=== PATIENT | female | born 1970 | race Caucasian/White ===

== ENCOUNTER → 2021-05-06 | Outpatient (CLI) | payer BC ==
--- NOTE | 2021-05-06 12:38 | Diagnostic Imaging Report ---
INDICATION: Routine screening. COMPARISON: No prior mammograms are available for comparison. TECHNIQUE: 2D and 3D bilateral screening mammography was performed with CAD. FINDINGS: Scattered fibroglandular densities are identified bilaterally. No dominant mass or malignant-appearing microcalcifications are seen. The axillae are unremarkable. IMPRESSION: No mammographic features suspicious for malignancy are identified. ACR BI-RADS Category 1: Negative. Result letter will be mailed to the patient. Note: At least 10% of breast cancer is not imaged by mammography. Dictated by: Dictated on workstation # [id number]
== END ==
LOC: RAD 09:45
PROVIDERS: ATTEND Nurse Practitioner
DX: Z12.31 Encounter for screening mammogram for malignant neoplasm of breast (principal)
CPT/HCPCS: 77063; 77067

== ENCOUNTER → 2021-11-09 | Outpatient (RCR) | payer BC ==
[~2021-11-09] VITALS: Ht 154.9 cm; Wt 95.7 kg
[~2021-11-09] MED LIST: DAPA1TAB5 PO; DULA1.5P2 SQ; HYDR12.56 PO; INSU100I23 SQ; INSU100V37 SQ; ROSU20TA32 PO
== END | disposition home or self-care (01) ==
LOC: PREOP 05:37 → EDSTATUS 10:45 → PREOP 15:02
PROVIDERS: ATTEND Surgery
DX: Z01.818 Encounter for other preprocedural examination (principal)

== ENCOUNTER 2021-11-16 07:45 | Day surgery (SDC) | payer BC ==
[~2021-11-16] VITALS: Ht 154.9 cm; Wt 95.7 kg
[2021-11-16] MEDS ORDERED: LACTATED RINGERS 1,000 ML IV ONE (07:48)
[2021-11-16] MEDS ORDERED: LACTATED RINGERS 1,000 ML IV STA (07:50)
[2021-11-16 07:55] VITALS: BP 126/70
[2021-11-16] MEDS ORDERED: HURRICAINE EXT TUBE (BENZOCAINE) XX PRN (08:00)
--- NOTE | 2021-11-16 08:28 | Progress Note-Pre Operative ---
Pre-Operative Progress Note H&P Reviewed The H&P was reviewed, patient examined and no changes noted. Time Seen by Provider: 08:23 Date H&P Reviewed: Nov 16, 2021 Time H&P Reviewed: 08:23 Pre-Operative Diagnosis: + MELISSA Garcia ERIC B DO Nov 16, 2021 08:28
[2021-11-16] MEDS ORDERED: PROPOFOL INJECTION 50 ML IV ONE (09:08)
[2021-11-16] MEDS ORDERED: proPOfol 200 MG/20 ML (DIPRIVAN) VIAL IV ONE (09:48)
[2021-11-16 10:00] VITALS: BP 100/62
--- NOTE | 2021-11-16 10:04 | Progress Note-Post Operative ---
Post-Operative Progess Note Surgeon (s)/Utility System Operator (s) Surgeon SHARMILA MONTERO DO Utility System Operator: AZEEM Lucas Pre-Operative Diagnosis + Cologuard, GERD Post-Operative Diagnosis Gastritis Hiatal hernia Esophagitis Polyps int hemorrhoids Procedure & Operative Findings Date of Procedure 11/16/21 Procedure Performed/Findings EGD with bx Colon with snare Colon with cold biopsy PROCEDURE NOTE: After informed consent was obtained, the patient was brought to the endoscopy suite, placed in bed in left lateral decubitus position. She was administered IV sedation by the UPHOLSTERY SEWER who then monitored vitals the entire time, heart rate, blood pressure and pulse ox and the scope was inserted down the mouth through the esophagus into the stomach. On the way down, noted some mild esophagitis, took a picture, pushed into the stomach, pushed past the antrum into the duodenum. Duodenum looked good. Pulled back and did a biopsy of antrum, then retroflexed the scope, saw a small 1cm hiatal hernia, took a picture of this. Then did a biopsy of the body of the stomach, finally pulled the scope into the GE junction and took another picture of the esophagitis and then did a biopsy of the GE junction. Pushed the scope back into the stomach, suctioned all the air out of the stomach. At this point pulled the scope up the esophagus and out the mouth. Switched camera, switched gloves, went down below and started the colonoscopy. Pushed in and saw a flat polyp in the descending colon; elected to remove it with cold biopsy. Able to get all of it in 2 bites. Next pushed all the way into about 140 cm to get all the way to cecum. Took a picture of the appendiceal orifice, noted the ileocecal valve and then slowly withdrew the scope, insufflating to look circumferentially at the law starting in the cecum, up the ascending colon to the hepatic flexure, then down the transverse colon, splenic flexure, into the descending colon. In the sigmoid colon saw a very large polyp; elected to do snare poly pectomy and able to remove it in 3-4 pieces. Two of the pieces were so large I had to suction them up to the scope and remove the scope completely and then reinsert the scope. Finally pulled down into the rectum and retroflexed in the rectal vault, saw s ome minimal internal hemorrhoids and took a picture of this. The patient tolerated the procedure and she recovered in the endoscopy suite. Anesthesia Type IV sedation by UPHOLSTERY SEWER Estimated Blood Loss Estimated blood loss (mL): scant Specimens/Packing Specimens Removed antral bx body of stomach bx GE jxn bx x 2 Desc colon polyp sigmoid colon polyp SHARMILA MONTERO DO Nov 16, 2021 10:04
[2021-11-16 10:05] VITALS: BP 112/68
[2021-11-16 10:35] VITALS: BP 118/68
[2021-11-16 10:39] VITALS: BP 118/68
--- NOTE | 2021-11-16 10:41 | Endoscopy Discharge Instruct ---
Endo Procedure/Findings Findings 1.: Gastritis, Other Findings (esophagitis) 2.: Hiatal Hernia 3.: Polyp 4.: Internal Hemorrhoids Discharge Instructions - Activity: You might feel a little sleepy until tomorrow. This is due to the medicine you received to relax you. Until tomorrow, you should: NOT drive a car, operate machinery or power tools. NOT drink any alcoholic beverages. NOT make any important decisions or sign importortant papers. Do not return to work until tomorrow, unless otherwise instructed. Resume previous activities tomorrow. Diet: Start by taking liquids. If you tolerate liquids, advance to solid food. 1.: EGD in 1 year 2.: Colonoscopy in 1 year Notify Physician - If you experience excessive bleeding, unusual abdominal pain, fever, or chest pain, contact your doctor immediately. SHARMILA MONTERO DO Nov 16, 2021 10:41
--- NOTE | 2021-11-16 12:30 | Anesthesia-General Post-Op ---
MAC Patient Condition Mental Status/LOC: Same as Preop Cardiovascular: Satisfactory Nausea/Vomiting: Absent Respiratory: Satisfactory Pain: Controlled Complications: Absent Post Op Complications Complications None Follow Up Care/Instructions Patient Instructions None needed. Anesthesiology Discharge Order Discharge Order Patient is doing well, no complaints, stable vital signs, no apparent adverse anesthesia problems. No complications reported per nursing. KIRTI HANKS CRNA Nov 16, 2021 12:30
== END 2021-11-16 10:55 | disposition home or self-care (01) ==
LOC: ENDO 07:45
PROVIDERS: ATTEND Surgery
DX: C18.7 Malignant neoplasm of sigmoid colon (principal); D12.4 Benign neoplasm of descending colon; K29.70 Gastritis, unspecified, without bleeding; K44.9 Diaphragmatic hernia without obstruction or gangrene; K21.00 Gastro-esophageal reflux disease with esophagitis, without bleeding; K64.8 Other hemorrhoids; E11.9 Type 2 diabetes mellitus without complications; E66.01 Morbid (severe) obesity due to excess calories; Z68.39 Body mass index [BMI] 39.0-39.9, adult; F17.290 Nicotine dependence, other tobacco product, uncomplicated; Z79.4 Long term (current) use of insulin; Z79.84 Long term (current) use of oral hypoglycemic drugs

== ENCOUNTER 2021-11-25 05:32 | Outpatient (CLI) | payer BC | END 2021-11-26 15:43 | disposition home or self-care (01) | LOC: PREOP 05:32 | PROVIDERS: ATTEND Surgery | DX: Z01.818 Encounter for other preprocedural examination (principal) ==

== ENCOUNTER 2021-12-04 13:51 | Outpatient (RCR) | payer BC ==
[2021-12-04 15:37] LABS: BASOPHILS % (AUTO) 0 % (0-10); EOSINOPHILS # (AUTO) 0.2 10^3/uL (0.0-0.3); EOSINOPHILS % (AUTO) 2 % (0-10); HEMATOCRIT 46 % (35-52); HEMOGLOBIN 15.1 g/dL (11.5-16.0); LYMPHOCYTES # (AUTO) 3.5 X 10^3 (1.0-4.0); LYMPHOCYTES % (AUTO) 33 % (12-44); MEAN CORPUSCULAR HEMOGLOBIN 29 pg (25-34); MEAN CORPUSCULAR HGB CONC 33 g/dL (32-36); MEAN CORPUSCULAR VOLUME 89 fL (80-99); MEAN PLATELET VOLUME 11.3 fL (9.0-12.2); MONOCYTES # (AUTO) 0.6 X 10^3 (0.0-1.0); MONOCYTES % (AUTO) 6 % (0-12); NEUTROPHILS # (AUTO) 6.1 X 10^3 (1.8-7.8); NEUTROPHILS % (AUTO) 58 % (42-75); PLATELET COUNT 180 10^3/uL (130-400); WHITE BLOOD COUNT 10.4 10^3/uL (4.3-11.0)
[2021-12-04 15:53] LABS: ALBUMIN 4.4 GM/DL (3.2-4.5); BILIRUBIN,TOTAL 0.3 MG/DL (0.1-1.0); CALCIUM 9.7 MG/DL (8.5-10.1); CREATININE SERUM 0.8 MG/DL (0.60-1.30); POTASSIUM 3.5 MMOL/L (3.6-5.0); TOTAL PROTEIN 7.2 GM/DL (6.4-8.2)
== END 2021-12-07 | disposition home or self-care (01) ==
LOC: ONC 13:51
PROVIDERS: ATTEND Internal Medicine Hematology & Oncology
DX: C18.9 Malignant neoplasm of colon, unspecified (principal)
CPT/HCPCS: 80053; 82378; 85025; G0463; 36415; 99214

== ENCOUNTER → 2021-12-11 | Outpatient (CLI) | payer BC ==
[~2021-12-11] MED LIST changes: +HOLD METFORMIN - RECEIVED CONTRAST 20 ML VIAL IV SCH; +IOHEXOL 350 MG/ML 100 ML (OMNIPAQUE 350) VIAL IV ONE; +NS 100 ML (IVPB) BAG IV ONE
--- NOTE | 2021-12-11 10:30 | Diagnostic Imaging Report ---
EXAMINATION: CT chest with intravenous contrast, CT abdomen and pelvis without and with intravenous contrast. TECHNIQUE: Pre and post intravenous contrast axial imaging of the abdomen and pelvis and post contrast axial imaging of the chest were performed. All CT scans use one or more of the following dose optimizing techniques: automated exposure control, MA and/or KvP adjustment based on patient size and exam type or iterative reconstruction. HISTORY: Colon cancer. COMPARISON: None available. FINDINGS: There is no edema or pneumonia. No pleural effusion. No pneumothorax. There is a 4 mm fissural-based nodule along the undersurface of the right minor fissure. There is no axillary or supraclavicular lymphadenopathy. There is no mediastinal lymphadenopathy. Heart size is normal. There are mild coronary artery calcifications. No pericardial effusion. Aorta is normal in caliber. The liver is normal without focal lesion. There is no biliary ductal dilation. Gallbladder is surgically absent. Pancreas is normal. Spleen is normal. Adrenal glands are normal. The kidneys are normal. There is no hydronephrosis. Urinary bladder is normal. Bowel is normal in caliber without obstruction or inflammation. No free fluid or air. No abdominal or pelvic lymphadenopathy. Aorta is normal in caliber without aneurysm. There are no suspicious osseous lesions. IMPRESSION: 1. Indeterminate 4 mm fissural-based nodule in the right minor fissure is favored to represent a lymph node. Short-term follow-up recommended. 2. No metastatic disease in the abdomen or pelvis. Dictated by: Dictated on workstation # [id number]
== END ==
LOC: RAD 10:15
PROVIDERS: ATTEND Internal Medicine Hematology & Oncology
DX: C18.9 Malignant neoplasm of colon, unspecified (principal); R91.1 Solitary pulmonary nodule
CPT/HCPCS: 71260; 74178

== ENCOUNTER 2021-12-17 12:19 | Outpatient (RCR) | payer BC ==
[~2021-12-17 12:19] MED LIST changes: -HOLD METFORMIN - RECEIVED CONTRAST 20 ML VIAL IV SCH; -IOHEXOL 350 MG/ML 100 ML (OMNIPAQUE 350) VIAL IV ONE; -NS 100 ML (IVPB) BAG IV ONE
[2021-12-18] MEDS ORDERED: PANT40TA2 PO (15:29)
[2021-12-25] MEDS ORDERED: ACHD5005 PO (11:11)
== END 2022-01-07 | disposition home or self-care (01) ==
LOC: ONC 12:19
PROVIDERS: ATTEND Internal Medicine Hematology & Oncology
DX: C18.7 Malignant neoplasm of sigmoid colon (principal); E11.9 Type 2 diabetes mellitus without complications; K21.9 Gastro-esophageal reflux disease without esophagitis
CPT/HCPCS: 99213

== ENCOUNTER 2021-12-18 05:39 | Outpatient (CLI) | payer BC ==
[~2021-12-18] VITALS: Ht 154.4 cm; Wt 91.4 kg
[2021-12-18] MEDS ORDERED: PANT40TA2 PO (15:29)
== END 2021-12-18 15:48 ==
LOC: PREOP 05:39
PROVIDERS: ATTEND Surgery
DX: Z01.818 Encounter for other preprocedural examination (principal)

== ENCOUNTER 2021-12-23 06:40 | Inpatient (IN) | payer BC ==
[2021-12-23] VITALS (12 sets, daily range): BP systolic 95–124; BP diastolic 41–69
[~2021-12-23] VITALS: Ht 154.9 cm; Wt 95.4 kg
[~2021-12-23 06:40] MED LIST changes: +PANT40TA2 PO
[2021-12-23] MEDS ORDERED: fentaNYL INJ 100 MCG/2 ML AMP ONE (07:37)
[2021-12-23] MEDS ORDERED: MIDAZOLAM 2 MG/2 ML (VERSED) VIAL ONE (07:39)
[2021-12-23] MEDS ORDERED: ceFAZolin 2 GM IV Premixed 50 ML IV ONE (07:45)
[2021-12-23] MEDS ORDERED: LIDOCAINE/EPI 2% 1:100,00 (XYLOCAINE) 20 ML VIAL ONE (07:48)
[2021-12-23] MEDS: LACTATED RINGERS 1,000 ML IV PRN ×2 (07:59→09:10)
--- NOTE | 2021-12-23 08:25 | Progress Note-Pre Operative ---
Pre-Operative Progress Note H&P Reviewed The H&P was reviewed, patient examined and no changes noted. Time Seen by Provider: 08:07 Date H&P Reviewed: Dec 23, 2021 Time H&P Reviewed: 08:07 Pre-Operative Diagnosis: Sigmoid Colon resection SHARMILA MONTERO DO Dec 23, 2021 08:25
[2021-12-23] MEDS ORDERED: ONDANSETRON 4 MG/2 ML (SDV) Z0FRAN ONE (10:01)
[2021-12-23] MEDS ORDERED: proPOfol 200 MG/20 ML (DIPRIVAN) VIAL IV ONE (10:01)
[2021-12-23] MEDS ORDERED: ROCURONIUM 10 MG/ML 5 ML SYRINGE IV ONE ×2 (10:01→10:15)
[2021-12-23] MEDS ORDERED: LIDOCAINE PF 2% 5 ML (XYLOCAINE) VIAL ONE (10:01)
[2021-12-23] MEDS ORDERED: PHENYLEPHRINE 100 MCG/ML 10 ML (ANESTHESIA) SYR ONE ×2 (10:01→11:05)
[2021-12-23] MEDS ORDERED: BUPIVACAINE 0.5% 30 ML (SENSORCAINE) VIAL ONE (10:24)
[2021-12-23] MEDS ORDERED: BUPIVACAINE 0.25% 30 ML (SENSORCAINE) VIAL ONE (10:24)
--- NOTE | 2021-12-23 10:28 | Progress Note-Post Operative ---
Post-Operative Progess Note Surgeon (s)/Castings Trimmer (s) Surgeon SHARMILA MONTERO DO Castings Trimmer: Natalio Pre-Operative Diagnosis Sigmoid Colon Cancer Post-Operative Diagnosis Sigmoid Colon CA Procedure & Operative Findings Date of Procedure 12/23/21 Procedure Performed/Findings Lap hand assisted Low anterior resection with primary coloproctotomy anastomosis Anesthesia Type GET Estimated Blood Loss Estimated blood loss (mL): less than 40ml Specimens/Packing Specimens Removed sigmoid colon SHARMILA MONTERO DO Dec 23, 2021 10:28
[2021-12-23] MEDS ORDERED: ONDANSETRON 4 MG/2 ML (SDV) Z0FRAN IVP PRN ×2 (10:30→11:00)
[2021-12-23] MEDS ORDERED: SUGAMMADEX 500 MG/5 ML VIAL (BRIDION) IV ONE (10:37)
[2021-12-23] MEDS ORDERED: fentaNYL INJ 100 MCG/2 ML AMP IVP ONE (11:00)
[2021-12-23] MEDS ORDERED: PROMETHAZINE INJ 25 MG/ML (PHENERGAN) AMP IVP ONE (11:00)
[2021-12-23] MEDS ORDERED: HYDROmorphone 2 MG/ML VIAL (DILAUDID) IV ONE (11:00)
[2021-12-23] MEDS ORDERED: morphine INJ 10 MG/ML 1ML (SYR OR VIAL) IVP ONE (11:00)
[2021-12-23] MEDS ORDERED: KETOROLAC 30 MG/ML VIAL ONE (11:07)
[2021-12-23] MEDS ORDERED: HYDROmorphone 2 MG/ML VIAL (DILAUDID) ONE (11:07)
[2021-12-23] MEDS: KETOROLAC 30 MG/ML VIAL IVP SCH ×3 (11:10→21:37)
[2021-12-23] MEDS ORDERED: SEVOFLURANE (ULTANE) 15 ML INHAL SOLN ONE (12:20)
[2021-12-23] MEDS ORDERED: KETOROLAC 30 MG/ML VIAL IVP SCH (12:30)
[2021-12-23] MEDS: ACETAMINOPHEN 500 MG TAB (TYLENOL) PO SCH ×2 (13:06→18:42)
[2021-12-23] MEDS: metroNIDAZOLE 500MG/100ML IVPB 100 ML IV SCH ×2 (13:06→21:12)
[2021-12-23] MEDS: LACTATED RINGERS 1,000 ML IV SCH ×3 (13:14→23:55)
[2021-12-23] MEDS: morphine INJ 4 MG/ML 1 ML (VIAL/SYRINGE) IVP PRN (13:21)
[2021-12-23] MEDS: ceFAZolin 2 GM IV Premixed 50 ML IV SCH (16:17)
[2021-12-24] MEDS: morphine INJ 4 MG/ML 1 ML (VIAL/SYRINGE) IVP PRN ×2 (00:06→08:50)
[2021-12-24] MEDS: ceFAZolin 2 GM IV Premixed 50 ML IV SCH (00:07)
--- NOTE | 2021-12-24 00:37 | OPERATIVE REPORT ---
DATE OF SERVICE: 12/23/2021 PREOPERATIVE DIAGNOSIS: Sigmoid colon cancer. POSTOPERATIVE DIAGNOSIS: Sigmoid colon cancer, pending pathology. PROCEDURE: Laparoscopic low anterior resection. SURGEON: Sharmila Ferris DO. SCRAP PREPARATION SUPERVISOR: Cruz Lance DO. ANESTHESIA: General endotracheal tube. SPECIMEN: Portion of sigmoid colon as well as anastomotic donuts. BLOOD LOSS: Less than 40 mL. FLUIDS: Per anesthesia. POSTOPERATIVE CONDITION: Stable. INDICATION FOR PROCEDURE: The patient is a 50-year-old female, who had a colonoscopy, large polyp removed came back as positive for adenocarcinoma of the sigmoid colon. FINDINGS: The patient had a portion of sigmoid colon removed. PROCEDURE NOTE: After informed consent was obtained, the patient was brought to the operating room, placed on the table in the lithotomy position. She was sterilely prepped and draped in normal fashion. Midline incision was made just above the umbilicus to below the umbilicus approximately 8 to 10 cm, carried down through the skin and subcutaneous tissue with a #10 blade, deepened down through subcutaneous tissue with Bovie electrocautery down to fascia. Fascia was incised with Bovie electrocautery, bluntly entered the abdomen, soft finger around and increased the incision along the fascia, protecting the intestine by holding my hand in the way and there by opening this incision, then placed a wound protector as well as the GelPort and then placed a 12 mm port in the right lower quadrant using local lidocaine, 11-blade for stab incision and VersaStep system, all done under direct visualization and placed another 5 mm port just below this again with local lidocaine, 11-blade for stab incision and VersaStep system, all under direct visualization. At this point, started looking in, feeling along the sigmoid colon and could not really feel the previous spot and the endoscopy come up. Dr. Lance went below and did a flex significant, able to visualize where we had taken the previous polyp off. He went above this and below this. We did not see any other obvious areas. At this point, had picked a place where we would start the resection of the sigmoid colon, so proximally went below the mesentery bluntly getting through the mesentery with my finger, then placed an Endo-MORGAN across this, clamped and fired, thereby transecting, went down below where we had marked visually with the colonoscope and then this was below the sacral promontory and below the retroperitoneum and the rectum. This was a low anterior resection, able to get around here and then under with scoring the mesentery with Bovie electrocautery and then using a finger to carefully fracture this and then used another Endo-MORGAN. I had used 2 firings to come across this portion of the rectum and then used a LigaSure, clamping, coagulating and transecting in this fashion coming across the mesentery. I had identified the left ureter and vessels and stayed away from these. Completely removed this and able to pull this through midline incision through the port protector. During this time, the patient had been in Trendelenburg position. At this point, ran up along the white line of Toldt in the left pericolic gutter to free this portion of descending colon up so it would come down into the rectum free this up enough and then brought this up into the midline, placed a pursestring applicator across the distal portion cut open the intestine and then placed 29 anvil in, tied the pursestring around it, dropped this back into the abdomen and then Dr. Lance went below. He placed a 25, 28, and 31 rectal probes to make sure we could see this. It came up to the distal portion that we have just resected. He then opened the stapling device trocar through the end and I attached the anvil that we had placed from pursestring in the proximal portion, attached this to each other, clipped in nicely and then he was carefully twisted down until he got right to the correct positioning noted by the green on the stapling device, held for 30 seconds, then fired, held for 20 seconds. He then did 2 turns and then able to remove this stapler. Two good donuts. I held the proximal portion of the colon and then placed some fluid into the abdomen. He then insufflated below this, there was no air leak. At this point, we then allowed the air to release and then I suctioned out this fluid, then closed the midline incision, closing the fascia with #1 double stranded PDS suture running from the superior portion to inferior portion tying to itself, irrigated the midline incision, then closed the skin with javid and then closed the other 2 port sites with javid as well. Area was cleaned and dried, dressings placed. The patient tolerated the procedure. She was transferred to recovery room in stable condition. Sponge, instrument and needle count correct at the end of the case. Dr. Lance assisted in this case helping to make incisions, close incisions, identify anatomy, hold anatomy out of the way as well as performing a flex sig, so we can make sure we are at the right spot. Job ID: [id number] DocumentID: [id number] Dictated Date: 12/23/2021 20:09:28 Veterinarian Assistant Date: 12/24/2021 00:36:19 Dictated By: SHARMILA FERRIS DO
[2021-12-24 04:15] VITALS: BP 102/66
[2021-12-24] MEDS: KETOROLAC 30 MG/ML VIAL IVP SCH ×4 (04:29→21:18)
[2021-12-24] MEDS: ACETAMINOPHEN 500 MG TAB (TYLENOL) PO SCH ×3 (04:29→17:52)
[2021-12-24] MEDS: LACTATED RINGERS 1,000 ML IV SCH (05:19)
[2021-12-24 07:44] VITALS: BP 104/70
--- NOTE | 2021-12-24 07:57 | Anesthesia-General Post-Op ---
General Patient Condition Mental Status/LOC: Same as Preop Cardiovascular: Satisfactory Nausea/Vomiting: Absent Respiratory: Satisfactory Pain: Controlled Complications: Absent Post Op Complications Complications None Follow Up Care/Instructions Patient Instructions None needed. Anesthesia/Patient Condition Patient Condition Patient is doing well, no complaints, stable vital signs, no apparent adverse anesthesia problems. No complications reported per nursing. IRIS ESQUIVEL CRNA Dec 24, 2021 07:57
[2021-12-24] MEDS: PANTOPRAZOLE 40 MG (PROTONIX) VIAL IVP SCH (08:51)
[2021-12-24] MEDS: ENOXAPARIN 40 MG/0.4 ML (LOVENOX) SYR SC SCH (10:30)
[2021-12-24 12:16] VITALS: BP 107/71
--- NOTE | 2021-12-24 14:03 | Progress Note - Surgery ---
Subjective Time Seen by a Provider: 10:57 Subjective/Events-last exam Pt seen and examined, she was standing up at bedside and her main complaint was "air/bloating across upper abdomen". She is tolerating clears and had a couple very small bloody BMs. Moderate pain at midline. Review of Systems General: No Chills, No Night Sweats Pulmonary: No Dyspnea, No Cough Cardiovascular: No: Chest Pain, Palpitations Gastrointestinal: Abdominal Pain; No: Nausea, Vomiting Objective Exam Vital Signs Date Time Temp Pulse Resp B/P (MAP) Pulse Ox O2 Delivery O2 Flow Rate FiO2 12/24/21 12:16 36.5 99 20 107/71 (83) 97 Room Air 12/24/21 11:18 Room Air 0.00 12/24/21 08:08 93 Room Air 12/24/21 07:44 36.3 94 18 104/70 (81) 93 Room Air 12/24/21 04:15 36.1 91 20 102/66 (78) 96 Nasal Cannula 2.00 12/23/21 23:38 36.5 96 18 107/55 (72) 94 Nasal Cannula 2.00 12/23/21 20:00 97 Room Air 12/23/21 19:44 36.5 109 22 124/64 (84) 95 Room Air 12/23/21 16:11 35.9 101 18 108/69 (82) 98 Nasal Cannula 5.00 I & O 12/24/21 07:00 Intake Total 2990 ml Output Total 200 ml Balance 2790 ml Capillary Refill : Less Than 3 Seconds General Appearance: Mild Distress (secondary to pain), Obese Respiratory: Lungs Clear, Normal Breath Sounds, No Accessory Muscle Use, No Respiratory Distress Cardiovascular: Regular Rate, Rhythm, No Murmur Gastrointestinal: soft, distended, tenderness (mostly at midline incision) Results Lab Microbiology 12/23/21 MRSA Screen - Final, Complete MRSA not isolated Assessment/Plan Assessment/Plan Assessment/Plan S/P Sigmoid colon resection Encourage IS use and ambulation. Continue pain control and advance diet as tolerated. SHARMILA MONTERO DO Dec 24, 2021 14:02
[2021-12-24 15:57] VITALS: BP 95/55
[2021-12-24 19:25] VITALS: BP 100/63
[2021-12-25] VITALS: BP 99/51
[2021-12-25] MEDS: ACETAMINOPHEN 500 MG TAB (TYLENOL) PO SCH ×3 (03:47→17:30)
[2021-12-25] MEDS: KETOROLAC 30 MG/ML VIAL IVP SCH ×4 (03:47→22:34)
[2021-12-25 04:00] VITALS: BP 108/50
--- NOTE | 2021-12-25 07:11 | Progress Note - Surgery ---
MIGUEL ALLRED 12/25/21 0711: Subjective Date Seen by a Provider: Dec 25, 2021 Time Seen by a Provider: 06:40 Subjective/Events-last exam Pt reports no pain at rest; slight pain (2/10) with occasional cough. Has had small, bloody diarrhea overnight. She has passed very little gas, and still has occasional gas pains (though they have improved). She is on a CLD and ate broth, jello, and an icy last night for dinner. Reports no nausea/vomiting. Denies CP, palpitations, SOB, and fever at this time. Review of Systems General: No Chills; Fatigue HEENT: No Head Aches, No Visual Changes; Post Nasal Drip Pulmonary: No Dyspnea; Cough Cardiovascular: No: Chest Pain, Palpitations Gastrointestinal: Abdominal Pain, Diarrhea, Hematochezia; No: Nausea, Vomiting Genitourinary: No Dysuria; Frequency Musculoskeletal: No: neck pain, leg pain Neurological: No: Weakness, Change in speech Focused Exam Respiratory: Lungs Clear, No Accessory Muscle Use, No Respiratory Distress Cardiovascular: Regular Rate, Rhythm, No Murmur Peripheral Pulses: 2+ Radial Pulses (R), 2+ Radial Pulses (L) Skin: normal color, warm/dry Objective Exam Vital Signs Date Time Temp Pulse Resp B/P (MAP) Pulse Ox O2 Delivery O2 Flow Rate FiO2 12/25/21 04:00 36.3 85 18 108/50 (69) 95 Room Air 12/25/21 00:00 36.4 85 17 99/51 (67) 95 Room Air 12/24/21 20:00 96 Room Air 12/24/21 19:25 35.6 82 18 100/63 (75) 95 Room Air 12/24/21 15:57 35.9 84 18 95/55 (68) 92 Room Air 12/24/21 12:16 36.5 99 20 107/71 (83) 97 Room Air 12/24/21 11:18 Room Air 0.00 12/24/21 08:08 93 Room Air 12/24/21 07:44 36.3 94 18 104/70 (81) 93 Room Air I & O 12/25/21 07:00 Intake Total 3100 ml Balance 3100 ml Capillary Refill : Less Than 3 Seconds General Appearance: No Apparent Distress, Obese Respiratory: Lungs Clear, Normal Breath Sounds, No Accessory Muscle Use, No Respiratory Distress Cardiovascular: Regular Rate, Rhythm, No Murmur Peripheral Pulses: 2+ Radial Pulses (R), 2+ Radial Pulses (L) Gastrointestinal: soft, distended, tenderness (incisional), other (minimal blood on dressing) Neurologic/Psychiatric: Alert, Oriented x3, Normal Mood/Affect Skin: Normal Color, Warm/Dry Results Lab Microbiology 12/23/21 MRSA Screen - Final, Complete MRSA not isolated Assessment/Plan Assessment/Plan Assessment/Plan S/P Sigmoid colon resection Encourage IS use and ambulation Pain management Advance diet as tolerated Pt wondering about discharge; has to go back to work Tuesday HEMANT FERRIS DO 12/25/21 1110: Subjective Time Seen by a Provider: 10:15 Subjective/Events-last exam Pt seen and examined, standing up and states her "gas pain is better". She had a small BM. Tolerating clears. Review of Systems General: No Chills; Fatigue HEENT: Post Nasal Drip Pulmonary: No Dyspnea; Cough Cardiovascular: No: Chest Pain, Palpitations Gastrointestinal: Abdominal Pain, Diarrhea, Hematochezia; No: Nausea, Vomiting Objective Exam General Appearance: No Apparent Distress, Obese Respiratory: Lungs Clear, Normal Breath Sounds, No Accessory Muscle Use, No Respiratory Distress Cardiovascular: Regular Rate, Rhythm, No Murmur Gastrointestinal: soft, distended, tenderness (incisional), other (minimal blood on dressing) Assessment/Plan Assessment/Plan Assessment/Plan S/P Sigmoid colon resection Encourage IS use and ambulation Pain management Advance diet as tolerated Will plan on discharge in am if she is tolerating diet and pain controlled with oral meds. Supervisory-Addendum Brief Verification & Attestation Participated in pt care: history, MDM, physical Personally performed: exam, history, MDM, supervision of care Care discussed with: Medical Student Procedures: n/a Verification and Attestation of Medical Student E/M Service A medical student performed and documented this service. I then reviewed and verified all information documented by the medical student and made modifications to such information, when appropriate. I personally performed a physical exam, medical decision making and then discussed any differences between the notes and made revisions as necessary to create one note. Hemant Ferris , 12/25/21 , 11:10 MIGUEL ALLRED 18, 2022 07:11 HEMANT FERRIS DO Dec 25, 2021 11:10
[2021-12-25 08:07] VITALS: BP 109/75
[2021-12-25] MEDS: PANTOPRAZOLE 40 MG (PROTONIX) VIAL IVP SCH (08:31)
[2021-12-25] MEDS: ENOXAPARIN 40 MG/0.4 ML (LOVENOX) SYR SC SCH (10:23)
[2021-12-25] MEDS ORDERED: ACHD5005 PO (11:11)
--- NOTE | 2021-12-25 11:13 | Discharge Inst-Surgical ---
Discharge Inst-Surgical Depart Medication/Instructions New, Converted or Re-Newed RX: Transmitted to Pharmacy Patient Instructions Follow up Appt: Make appointment for January 05, Instructions: No lifting greater than 20 pounds. No strenuous activity. May shower in 24 hours, no tub bath or soaking. Use incentive spirometer at home as directed. No Smoking Skin/Wound Care: You need to leave the javid in place and come in to the office to have them removed. Symptoms to Report: Appetite Changes, Extremity Discoloration, Numbness/Tingling, Swelling Increased, Bleeding Excessive, Eyesight Changes, Pain Increased, Urine Color Change, Constipation(Persistent), Fever over 101 degree F, Pain/Pressure in chest, Urinating Difficulty, Cough Up/Vomit Blood, Heart Beat Irreg/Pounding, Pain/Pressure in jaw, Cramps in feet or legs, Lightheadedness, Pain/Pressure in shoulder, Diarrhea(Persistent), Memory Changes Suddenly, Questions/Concerns, Weight gain consecutive days, Dizziness/Fainting, Nausea/Vomiting, Shortness of Breath, Weight gain over 2 pounds If questions or concerns contact your physician Or seek help at emergency department. Activity Activity as Tolerated: Yes Activity Instructions: Avoid Stress to Incision Driving Instructions: No Driving/Refer to Dr. Liu Discharge Diet: No Restrictions Diet After 24 Hours: Clear Liquid if Nauseous If Any Problems/Questions/Issu: Contact Your Physician, Go to Emergency Room Skin/Wound Care Infection Signs and Symptoms: Increased Redness, Foul Odor of Wound, Increased Drainage, Skin Itchy or Has a Rash, Increased Swelling, Temperature Above 101 F Bathing Instructions: Shower Stitches/[place]/Dermabond Dis: Care of SHARMILA Gilbert DO Dec 25, 2021 11:13
[2021-12-25 11:42] VITALS: BP 116/75
[2021-12-25 15:52] VITALS: BP 125/59
[2021-12-25 20:10] VITALS: BP 130/82
[2021-12-26] VITALS: BP 104/70
[2021-12-26] MEDS: ACETAMINOPHEN 500 MG TAB (TYLENOL) PO SCH ×2 (02:58→10:43)
[2021-12-26 04:00] VITALS: BP 123/83
[2021-12-26] MEDS: KETOROLAC 30 MG/ML VIAL IVP SCH ×2 (04:47→10:43)
[2021-12-26 07:21] VITALS: BP 114/70
[2021-12-26] MEDS: PANTOPRAZOLE 40 MG (PROTONIX) VIAL IVP SCH (08:06)
--- NOTE | 2021-12-26 10:34 | Progress Note ---
Subjective Date Seen by a Provider: Dec 26, 2021 Time Seen by a Provider: 10:00 Subjective/Events-last exam Patient seen and reports doing well. Reports ready to go home. Tolerating diet and ambulating. Denies any N/V, Fever/Chills. Having BMs. Objective Exam Vital Signs Date Time Temp Pulse Resp B/P (MAP) Pulse Ox O2 Delivery O2 Flow Rate FiO2 12/26/21 08:00 95 Room Air 0.00 12/26/21 07:21 36.4 83 18 114/70 (85) 95 Room Air 12/26/21 04:00 36.2 82 16 123/83 (96) 96 Room Air 12/26/21 00:00 36.1 81 20 104/70 (81) 96 Room Air 12/25/21 20:10 35.5 85 20 130/82 (98) 96 Room Air 12/25/21 20:00 96 Room Air 12/25/21 15:52 36.1 82 18 125/59 (81) 98 Room Air 12/25/21 11:42 36.4 90 20 116/75 (89) 98 Room Air I & O 12/26/21 07:00 Intake Total 3140 ml Balance 3140 ml Capillary Refill : Less Than 3 Seconds General Appearance: No Apparent Distress, WD/WN Neck: Normal Inspection, Supple Respiratory: No Accessory Muscle Use, No Respiratory Distress Cardiovascular: Regular Rate, Rhythm, No Edema Gastrointestinal: normal bowel sounds, soft, tenderness Extremity: Normal Inspection, Normal Range of Motion Neurologic/Psychiatric: Alert, Oriented x3 Skin: Normal Color, Warm/Dry, Other (Abdominal incisions C/D/I with no signs of infection) Results Lab Microbiology 12/23/21 MRSA Screen - Final, Complete MRSA not isolated Assessment/Plan Assessment/Plan Assess & Plan/Chief Complaint A 51 year old female who is S/P Sigmoid colon resection VSS Encourage IS use and ambulation Pain management Advance diet as tolerated OK to DC home today. ANGIE RADFORD APRN Dec 26, 2021 10:34
[2021-12-26] MEDS: ENOXAPARIN 40 MG/0.4 ML (LOVENOX) SYR SC SCH (10:43)
[2021-12-26 10:50] VITALS: BP 114/70
== END 2021-12-26 11:05 | disposition home or self-care (01) | DRG 331 ==
LOC: 4TH 06:40 → SURG 06:41 → 4TH 11:40
PROVIDERS: ADMIT Surgery; ATTEND Surgery
PROC: 0DTN0ZZ Resection of Sigmoid Colon, Open Approach (ICD-10-PCS; principal; 2021-12-23 08:23)
PROC: 0DBP0ZZ Excision of Rectum, Open Approach (ICD-10-PCS; 2021-12-23 08:23)
DX: C18.7 Malignant neoplasm of sigmoid colon (principal); F17.210 Nicotine dependence, cigarettes, uncomplicated; I10 Essential (primary) hypertension; E11.9 Type 2 diabetes mellitus without complications; K21.9 Gastro-esophageal reflux disease without esophagitis; F41.9 Anxiety disorder, unspecified; F32.A Depression, unspecified; Z79.4 Long term (current) use of insulin; Z20.822 Contact with and (suspected) exposure to COVID-19
CPT/HCPCS: 86850; 86900; 86901; 87081

== ENCOUNTER 2022-01-20 09:09 | Outpatient (RCR) | payer BC ==
[~2022-01-20 09:09] MED LIST changes: +ACHD5005 PO
[2022-01-20 09:35] LABS: BASOPHILS # (AUTO) 0.1 10^3/uL (0.0-0.1); BASOPHILS % (AUTO) 1 % (0-10); EOSINOPHILS # (AUTO) 0.7 10^3/uL (0.0-0.3); EOSINOPHILS % (AUTO) 7 % (0-10); HEMATOCRIT 45 % (35-52); LYMPHOCYTES # (AUTO) 2.8 10^3/uL (1.0-4.0); LYMPHOCYTES % (AUTO) 28 % (12-44); MEAN CORPUSCULAR HEMOGLOBIN 29 pg (25-34); MEAN CORPUSCULAR HGB CONC 33 g/dL (32-36); MEAN CORPUSCULAR VOLUME 89 fL (80-99); MEAN PLATELET VOLUME 11.3 fL (9.0-12.2); MONOCYTES # (AUTO) 0.6 10^3/uL (0.0-1.0); MONOCYTES % (AUTO) 6 % (0-12); NEUTROPHILS # (AUTO) 5.7 10^3/uL (1.8-7.8); NEUTROPHILS % (AUTO) 58 % (42-75); PLATELET COUNT 159 10^3/uL (130-400)
[2022-01-20 09:57] LABS: ALBUMIN 4.3 GM/DL (3.2-4.5); BILIRUBIN,TOTAL 0.5 MG/DL (0.1-1.0); CALCIUM 9.6 MG/DL (8.5-10.1); CREATININE SERUM 0.88 MG/DL (0.60-1.30); POTASSIUM 3.8 MMOL/L (3.6-5.0); TOTAL PROTEIN 7.1 GM/DL (6.4-8.2)
== END 2022-02-06 | disposition home or self-care (01) ==
LOC: ONC 09:09
PROVIDERS: ATTEND Internal Medicine Hematology & Oncology
DX: C18.7 Malignant neoplasm of sigmoid colon (principal); E11.9 Type 2 diabetes mellitus without complications; K21.9 Gastro-esophageal reflux disease without esophagitis; K44.9 Diaphragmatic hernia without obstruction or gangrene; R91.1 Solitary pulmonary nodule
CPT/HCPCS: 80053; 82378; 85025; G0463; 36415; 99213